=== PATIENT | male | born 1970 | race American Indian/Alaskan Native ===

== ENCOUNTER 2018-03-08 12:31 | Emergency (ER) | payer OTHER ==
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
[2018-03-08] MEDS ORDERED: MOTRIN PO ONE (14:43)
[2018-03-08] MEDS ORDERED: CATAPRES PO ONE (15:30)
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
[2018-03-08 17:31] VITALS: BP 165/110
== END 2018-03-08 17:36 | disposition home or self-care (01) ==
LOC: ED 12:31
DX: S76.012A Strain of muscle, fascia and tendon of left hip, initial encounter (principal); S46.912A Strain of unspecified muscle, fascia and tendon at shoulder and upper arm level, left arm, initial encounter; I10 Essential (primary) hypertension; V89.2XXA Person injured in unspecified motor-vehicle accident, traffic, initial encounter; Y93.9 Activity, unspecified; Y92.89 Other specified places as the place of occurrence of the external cause; Y99.8 Other external cause status
CPT/HCPCS: 99283